=== PATIENT | male | born 1960 | race Caucasian/White ===

== ENCOUNTER 2016-09-30 10:35 | Day surgery (SDC) | payer OTHER ==
[2016-09-29 13:12] LABS: Basophils # (auto) 0 uL; Basophils % (auto) 0.3 % (0.0-2.0); Eosinophils # (auto) 0.1 uL; Eosinophils % (auto) 1.7 % (0.0-7.0); Hematocrit 44.7 % (41.0-53.0); Hemoglobin 14.7 g/dL (13.5-17.5); Lymphocytes # (auto) 1.3 uL; Lymphocytes % (auto) 25.6 % (10.0-50.0); Mean Corpuscular Hemoglobin 31.6 pg (28.0-32.0); Mean Corpuscular Volume 95.6 fL (80.0-100.0); Mean Platelet Volume 8.7 fL (7.4-10.4); Monocytes # (auto) 0.4 uL; Monocytes % (auto) 8.4 % (0.0-12.0); Neutrophils # (auto) 3.2 uL; Platelet Count (auto) 158 10^3/uL (140-450); Red Cell Distribution Width 13.5 % (11.6-16.0)
[2016-09-29 13:25] LABS: INR 1.11 (0.9-1.15); Prothrombin Time 11.4 sec (9.37-12.3)
[2016-09-29 13:29] LABS: Urine Bilirubin Negative (Negative); Urine Blood TRACE /uL (Negative); Urine Color Colorless (Yellow); Urine Ketone Negative (Negative); Urine Mucus FEW (None Seen); Urine Nitrite Negative (Negative); Urine RBC <1 /hpf (0 - 3); Urine Squamous Epithelial Cell FEW /hpf (<5); Urine Urobilinogen Normal (Negative)
[2016-09-29 13:30] LABS: Urine Glucose 1+ mg/dL (Normal)
[2016-09-29 13:34] LABS: Albumin 3.7 g/dL (3.4-5.0); BUN/Creatinine Ratio 15.2; Bilirubin, Total 0.5 mg/dL (0.2-1.0); Potassium 4.3 mmol/L (3.5-5.1); Total Protein 7.3 g/dL (6.4-8.2)
[~2016-09-30] VITALS: Ht 175.3 cm; Wt 102.1 kg
[~2016-09-30 10:35] MED LIST: BUPRTAB PO; LEV100T PO; NOR5T PO; OLME20TA19 PO
[2016-09-30] MEDS ORDERED: CLINDAMYCIN 600MG IV 50 ML IV ONE (16:20)
[2016-09-30] MEDS ORDERED: fentaNYL CITRATE 100 MCG/2 ML VL ONE (16:25)
[2016-09-30] MEDS ORDERED: KETOROLAC TROMETH 60MG/2ML VIAL IM ONE (16:26)
[2016-09-30] MEDS ORDERED: MIDAZOLAM HCL 1MG/1ML-2 ML VIAL ONE (16:26)
[2016-09-30] MEDS ORDERED: PROPOFOL 10 MG/ML 20 ML IV ONE (16:26)
[2016-09-30] MEDS ORDERED: DEXAMETHASONE SOD PHOS 10MG/1ML VIAL INJ ONE (16:26)
[2016-09-30] MEDS ORDERED: HYDROmorphone HCL 2 MG/ML VL IV PRN (17:15)
[2016-09-30] MEDS ORDERED: ONDANSETRON HCL 4 MG/2 ML VIAL IV ONE (17:15)
[2016-09-30 17:47] VITALS: BP 130/80
== END 2016-09-30 17:47 | disposition home or self-care (01) ==
LOC: SUR 10:35
PROVIDERS: ATTEND Podiatrist Foot & Ankle Surgery
DX: T84.84XA Pain due to internal orthopedic prosthetic devices, implants and grafts, initial encounter (principal); E66.9 Obesity, unspecified; E11.9 Type 2 diabetes mellitus without complications
CPT/HCPCS: 20680; 36415; 80053; 81001; 85025; 85610; 85730; J1100; J1885; J2250; J2704; J3010; J3490; Q4139

== ENCOUNTER → 2017-08-04 | Outpatient (CLI) | payer BC, OTHER ==
[~2017-08-04] MED LIST changes: +HYDR-4683 PO; +KETOROLAC TROMETH 60MG/2ML VIAL IM ONE; -NOR5T PO; +SODIUM CHLORIDE 0.9% 1,000 ML IV SCH; +cloNIDine HCL 0.1 MG TAB ONE; +cloNIDine HCL 0.1 MG TAB PO ONE; +clonazePAM 0.5 MG TAB PO ONE
[2017-08-04 15:00] VITALS: BP 119/69
[2017-08-04 15:57] VITALS: BP 119/69
[2017-08-04 16:17] LABS: Basophils # (auto) 0 uL; Basophils % (auto) 0.2 % (0.0-2.0); Eosinophils # (auto) 0 uL; Eosinophils % (auto) 0.5 % (0.0-7.0); Hematocrit 45.9 % (41.0-53.0); Lymphocytes # (auto) 1.1 uL; Lymphocytes % (auto) 11.9 % (10.0-50.0); Mean Corpuscular Volume 97.2 fL (80.0-100.0); Mean Platelet Volume 8.8 fL (6.9-10.8); Monocytes # (auto) 0.7 uL; Monocytes % (auto) 7.6 % (0.0-12.0); Neutrophils % (auto) 79.8 % (37.0-80.0); Nucleated Red Blood Cells % 0.4 %; Platelet Count (auto) 125 10^3/uL (140-450); Red Cell Distribution Width 13.1 % (11.8-14.3); White Blood Cell 8.8 10^3/uL (4.4-10.8)
[2017-08-04 16:24] LABS: BUN/Creatinine Ratio 19.2; Magnesium 2.5 mg/dL (1.6-2.6); Potassium 3.8 mmol/L (3.5-5.1)
== END | disposition home or self-care (01) ==
LOC: CHF HDHVI 13:04
PROVIDERS: ATTEND Internal Medicine Cardiovascular Disease
DX: I10 Essential (primary) hypertension (principal); E11.9 Type 2 diabetes mellitus without complications; E83.42 Hypomagnesemia; D64.9 Anemia, unspecified; E55.9 Vitamin D deficiency, unspecified
CPT/HCPCS: 36415; 80048; 82306; 82962; 83036; 83735; 85025; 96360; 96372; G0463; J1885

== ENCOUNTER 2017-08-05 21:35 | Inpatient (IN) | payer BC ==
[~2017-08-05] VITALS: Ht 175.3 cm; Wt 101.2 kg
[~2017-08-05 21:35] MED LIST changes: -KETOROLAC TROMETH 60MG/2ML VIAL IM ONE; -SODIUM CHLORIDE 0.9% 1,000 ML IV SCH; -cloNIDine HCL 0.1 MG TAB ONE; -cloNIDine HCL 0.1 MG TAB PO ONE; -clonazePAM 0.5 MG TAB PO ONE
[2017-08-05 22:12] LABS: Albumin 3.7 g/dL (3.4-5.0); Anion Gap 8 (5-15); Aspartate Aminotransferase 33 U/L (15-37); Blood Urea Nitrogen 24 mg/dL (7-18); Calcium 9.1 mg/dL (8.5-10.1); Carbon Dioxide 27 mmol/L (21-32); Chloride 101 mmol/L (98-107); GFR African American 89 mL/min; GFR Non-African American 74 mL/min; Glucose 142 mg/dL (74-106); Magnesium 2.3 mg/dL (1.6-2.6); Potassium 3.8 mmol/L (3.5-5.1); Sodium 136 mmol/L (136-145)
[2017-08-05 22:16] LABS: Alkaline Phosphatase 90 U/L (45-117); Bilirubin, Total 0.5 mg/dL (0.2-1.0); Total Protein 8.1 g/dL (6.4-8.2)
[2017-08-05 22:46] LABS: Basophils # (auto) 0 uL; Basophils % (auto) 0.3 % (0.0-2.0); Eosinophils # (auto) 0.1 uL; Eosinophils % (auto) 1.1 % (0.0-7.0); Lymphocytes # (auto) 1.5 uL; Monocytes # (auto) 0.7 uL; Neutrophils # (auto) 5.8 uL
[2017-08-05 22:48] LABS: Hemoglobin 15.8 g/dL (13.5-17.5); Lymphocytes % (auto) 19.1 % (10.0-50.0); Mean Corpuscular Hemoglobin 33.5 pg (28.0-32.0); Mean Corpuscular Hgb Conc. 34.5 g/dL (32.0-36.0); Mean Corpuscular Volume 97.1 fL (80.0-100.0); Mean Platelet Volume 8.6 fL (6.9-10.8); Monocytes % (auto) 8.2 % (0.0-12.0); Neutrophils % (auto) 71.3 % (37.0-80.0); Platelet Count (auto) 128 10^3/uL (140-450); Red Cell Distribution Width 12.9 % (11.8-14.3); White Blood Cell 8.1 10^3/uL (4.4-10.8)
[2017-08-06] MEDS ORDERED: LORazepam 0.5 MG TAB PO ONE (01:30)
[2017-08-06] MEDS ORDERED: HYDROcodone-ACET 10/325MG TAB PO ONE ×2 (01:30→10:00)
[2017-08-06] MEDS ORDERED: ASPirin 81 mg TAB PO ONE (01:30)
[2017-08-06 02:20] LABS: INR 0.98 (0.9-1.15); Partial Thromboplastin Time 27.5 sec (22.64-33.71); Prothrombin Time 10.7 sec (9.37-12.3)
[2017-08-06 02:33] LABS: B-Type Natriuretic Peptide 9.3 pg/mL (0-100); Temperature: 22.4 C (20.0-25.0)
[2017-08-06] MEDS ORDERED: LORazepam 0.5 MG TAB PO PRN (09:45)
[2017-08-06] MEDS ORDERED: MORPHINE SULF INJ 2 MG/ML SYRINGE 1ML IV PRN (09:45)
[2017-08-06] MEDS ORDERED: ACETAMINOPHEN 500 MG TAB PO PRN (09:45)
[2017-08-06] MEDS ORDERED: NITROGLYCERIN 0.4 MG SL TAB SL PRN (09:45)
[2017-08-06] MEDS ORDERED: TEMAZEPAM 15 MG CAP PO PRN (09:45)
[2017-08-06] MEDS ORDERED: LACTULOSE 20Gm/30ML SOLN PO PRN (09:45)
[2017-08-06] MEDS ORDERED: HYDROmorphone HCL 2 MG/ML VL IV PRN (09:45)
[2017-08-06] MEDS ORDERED: HYDROcodone-ACET 5/325MG TAB PO PRN (09:45)
[2017-08-06] MEDS ORDERED: PROMETHAZINE HCL 25 MG/ML 1ML IV PRN (09:45)
[2017-08-06] MEDS: METOPROLOL TARTRATE 25 MG TAB PO SCH ×2 (10:02→22:00)
[2017-08-06] MEDS: SODIUM CHLORIDE 0.9% 1,000 ML IV SCH (10:03)
[2017-08-06] MEDS: NITROGLYCERIN 0.2MG/HR TOPICAL PATCH TD SCH (10:03)
[2017-08-06] MEDS: ENOXAPARIN SOD 40 MG/0.4 ML SYRINGE SC SCH (10:03)
[2017-08-06] MEDS: HYDROcodone-ACET 10/325MG TAB PO SCH ×2 (13:45→20:53)
[2017-08-06 14:32] VITALS: BP 119/83
[2017-08-06 17:00] VITALS: BP 114/72
[2017-08-06 20:00] VITALS: BP 116/83
[2017-08-06 22:00] VITALS: BP 116/83
[2017-08-06] MEDS ORDERED: ATORVASTATIN 20 MG TAB PO SCH (22:00)
[2017-08-07 05:00] VITALS: BP 146/83
[2017-08-07] MEDS: HYDROcodone-ACET 10/325MG TAB PO SCH (05:47)
[2017-08-07] MEDS: SODIUM CHLORIDE 0.9% 1,000 ML IV SCH ×2 (05:47→12:15)
[2017-08-07 06:55] LABS: Cholesterol 180 mg/dL (< 200); HDL Cholesterol 39 mg/dL (40-59); LDL Cholesterol 134 mg/dL (< 100); Triglycerides 134 mg/dL (< 150)
[2017-08-07 08:00] VITALS: BP 122/79
[2017-08-07 09:00] VITALS: BP 122/79
[2017-08-07] MEDS: METOPROLOL TARTRATE 25 MG TAB PO SCH (09:38)
[2017-08-07] MEDS: ENOXAPARIN SOD 40 MG/0.4 ML SYRINGE SC SCH (09:39)
[2017-08-07] MEDS: NITROGLYCERIN 0.2MG/HR TOPICAL PATCH TD SCH (09:40)
[2017-08-07] MEDS ORDERED: ASPirin 81 mg TAB PO SCH (10:00)
[2017-08-07 10:57] VITALS: BP 122/68
[2017-08-07 11:07] VITALS: BP 122/68
== END 2017-08-07 13:29 | disposition home or self-care (01) | DRG 313 ==
LOC: ER 21:35 → TELE 21:36 → TELE-WESTW 08-06 11:54 → TELE-EAST 08-06 14:00
PROVIDERS: ADMIT Internal Medicine; ATTEND Internal Medicine
DX: R07.89 Other chest pain (principal); I20.9 Angina pectoris, unspecified; F41.9 Anxiety disorder, unspecified; M54.5 Low back pain; E03.9 Hypothyroidism, unspecified; E66.9 Obesity, unspecified; G89.29 Other chronic pain; I10 Essential (primary) hypertension; Z88.0 Allergy status to penicillin; Z68.32 Body mass index [BMI] 32.0-32.9, adult
CPT/HCPCS: 36415; 71010; 80053; 80061; 80307; 82550; 83735; 83880; 84443; 84484; 85025; 85379; 85610; 85652; 85730; 86141; 93005; 94761

== ENCOUNTER 2017-08-24 10:21 | Day surgery (SDC) | payer BC ==
[~2017-08-24] VITALS: Ht 177.8 cm; Wt 97.5 kg
[2017-08-24 11:31] LABS: Basophils # (auto) 0 uL; Basophils % (auto) 0.4 % (0.0-2.0); Eosinophils # (auto) 0.1 uL; Eosinophils % (auto) 0.8 % (0.0-7.0); Hematocrit 44.7 % (41.0-53.0); Hemoglobin 15.4 g/dL (13.5-17.5); Lymphocytes # (auto) 1.5 uL; Lymphocytes % (auto) 22.5 % (10.0-50.0); Mean Corpuscular Hemoglobin 33.1 pg (28.0-32.0); Mean Corpuscular Hgb Conc. 34.4 g/dL (32.0-36.0); Mean Corpuscular Volume 96.4 fL (80.0-100.0); Mean Platelet Volume 8.3 fL (6.9-10.8); Monocytes # (auto) 0.5 uL; Monocytes % (auto) 7.5 % (0.0-12.0); Neutrophils # (auto) 4.6 uL; Neutrophils % (auto) 68.8 % (37.0-80.0); Nucleated Red Blood Cells % 0.1 %; Platelet Count (auto) 145 10^3/uL (140-450); White Blood Cell 6.6 10^3/uL (4.4-10.8)
[2017-08-24 11:38] LABS: BUN/Creatinine Ratio 20.2; Calcium 8.9 mg/dL (8.5-10.1); Potassium 4.2 mmol/L (3.5-5.1)
[2017-08-24 11:46] LABS: INR 1.09 (0.9-1.15); Prothrombin Time 11.9 sec (9.37-12.3)
[2017-08-24] MEDS ORDERED: ASPI81TA27 PO (11:52)
[2017-08-24] MEDS ORDERED: LIDOCAINE 2%HCL (LOCAL ANESTH.) INJ 20ML MDV ONE (12:56)
[2017-08-24] MEDS ORDERED: IOHEXOL 350 MG/ML 100ML IJ ONE (12:56)
[2017-08-24] MEDS ORDERED: ANGIOMAX 250 MG VIAL IV ONE (13:05)
[2017-08-24] MEDS ORDERED: fentaNYL CITRATE 100 MCG/2 ML VL ONE (13:05)
[2017-08-24] MEDS ORDERED: SODIUM CHL 0.9% 50 ML ONE (13:06)
[2017-08-24] MEDS ORDERED: MIDAZOLAM HCL 1MG/1ML-2 ML VIAL ONE (13:06)
== END 2017-08-24 16:00 | disposition home or self-care (01) ==
LOC: CATH 10:21
PROVIDERS: ATTEND Internal Medicine Cardiovascular Disease
DX: R94.39 Abnormal result of other cardiovascular function study (principal); R07.9 Chest pain, unspecified; R00.1 Bradycardia, unspecified; Z88.0 Allergy status to penicillin; I10 Essential (primary) hypertension; E78.5 Hyperlipidemia, unspecified; E66.9 Obesity, unspecified; F41.9 Anxiety disorder, unspecified; E03.9 Hypothyroidism, unspecified
CPT/HCPCS: 36415; 80048; 85025; 85610; 93458; C1760; C1894; J1644; J2250; J3010; J7030; Q9967; 99152

== ENCOUNTER → 2018-01-18 | Outpatient (CLI) | payer BC ==
[~2018-01-18] MED LIST changes: +ASPI81TA27 PO
[2018-01-18 14:00] VITALS: BP 142/84
[2018-01-18 14:35] VITALS: BP 140/80
== END | disposition home or self-care (01) ==
LOC: CHF HDHVI 14:09
PROVIDERS: ATTEND Internal Medicine Cardiovascular Disease
DX: L02.818 Cutaneous abscess of other sites (principal); I10 Essential (primary) hypertension; E11.9 Type 2 diabetes mellitus without complications; E78.5 Hyperlipidemia, unspecified; E03.9 Hypothyroidism, unspecified
CPT/HCPCS: G0463

== ENCOUNTER → 2018-10-10 | Outpatient (CLI) | payer BC | END | disposition home or self-care (01) | LOC: Rad HDHVI 14:04 | PROVIDERS: ATTEND Internal Medicine Cardiovascular Disease | DX: I70.0 Atherosclerosis of aorta (principal) | CPT/HCPCS: 71046 ==

== ENCOUNTER → 2023-06-18 | Outpatient (CLI) | payer MEDICARE, BC ==
[~2023-06-18] MED LIST changes: +ASPI-543 PO; -ASPI81TA27 PO; -HYDR-4683 PO; +HYDR-4833 PO; -OLME20TA19 PO; +OLME20TA53 PO
[2023-06-18 13:45] VITALS: BP 205/102; PULSE 65; RESP 18; O2SAT 98
[2023-06-18 14:04] VITALS: BP 188/94; PULSE 63; RESP 18; O2SAT 98
== END | disposition home or self-care (01) ==
LOC: Rad HDHVI 13:06
PROVIDERS: ATTEND Internal Medicine Cardiovascular Disease
DX: I10 Essential (primary) hypertension (principal); E78.5 Hyperlipidemia, unspecified
CPT/HCPCS: 93306; G0463

== ENCOUNTER → 2023-07-19 | Outpatient (CLI) | payer MEDICARE, BC ==
[~2023-07-19] VITALS: Ht 175.3 cm; Wt 83.9 kg
[~2023-07-19] MED LIST changes: +ADENOSINE 70 MG in GIVE UN-DILUTED 0 ML IV ONE; +ADENOSINE 90 MG/30 ML INJ IV ONE
== END | disposition home or self-care (01) ==
LOC: Rad HDHVI 13:06
PROVIDERS: ATTEND Internal Medicine Cardiovascular Disease
DX: Z01.810 Encounter for preprocedural cardiovascular examination (principal); I11.0 Hypertensive heart disease with heart failure; I50.33 Acute on chronic diastolic (congestive) heart failure; R07.9 Chest pain, unspecified; E78.00 Pure hypercholesterolemia, unspecified; Z82.49 Family history of ischemic heart disease and other diseases of the circulatory system
CPT/HCPCS: 78452; 93005; 96374; 96375; A9500; J0153

== ENCOUNTER → 2025-01-19 | Outpatient (CLI) | payer MEDICARE, OTHER ==
[~2025-01-19] MED LIST changes: -ADENOSINE 70 MG in GIVE UN-DILUTED 0 ML IV ONE; -ADENOSINE 90 MG/30 ML INJ IV ONE; -LEV100T PO; +LEVO-849 PO
--- NOTE | 2025-01-19 13:31 | DVH ---
EXAM: CT LS SPINE WO CONTRAST HISTORY: LBP COMPARISON: None CTDIvol 33.9 mGy, DLP 950.14 mGy*cm. TECHNIQUE: Multiple axial CT images of the spine were obtained using bone algorithm. Axial and albrecht l reformatting was done. Bone and soft tissue windows were reviewed. FINDINGS: 5 mei-bwi-tthyqry lumbar-type vertebrae. Straightening of the lumbar lordosis. Chronic appearing ant erior wedge deformity of T12 and L1 with about 30% loss of anterior vertebral body height of T12 and 20% loss of vertebral body height of L1. Diffuse demineralization. Grade 1 retrolisthesis of L1 on L2 and L2 on L3. anterolisthesis Grade 2 anterolisthesis of L5 on S1 with bilateral L5 pars defect. Va cuum disc phenomenon at L3-L4 and L5-S1. T12-L1: No significant spinal canal or neural foramina stenosis. L1-L2: Minimal posterior disc osteophyte complex without significant spinal canal or neural foramina stenosis. L2-L3: Mild posterior disc osteophyte complex without significant spinal canal stenosis. Moderate rig ht with mild left-sided neural foramina stenosis. L3-L4: Posterior disc bulge with posterior disc calcification. Ligamentum flavum hypertrophy with krystyna rekha epidural lipomatosis causing severe bilateral lateral recess narrowing without significant spinal canal stenosis. Moderate left with severe right-sided neural foramina stenosis. L4-L5: Mild posterior disc bulge with posterior disc calcification without significant spinal canal s tenosis. Mild right with [id number] left-sided neural foramina stenosis. L5-S1: Posterior disc bulge without significant spinal canal stenosis. Severe bilateral neural forami na stenosis. Paraspinal muscles unremarkable. 2.4 x 2.1 cm structure abutting the inferior left adrenal gland. IMPRESSION: Multilevel moderate to severe degenerative changes of the lumbar spine as detailed above. Grade 2 ant erolisthesis of L5 on S1 with bilateral L5 pars defect. MRI should be considered for further evaluation. Moderate right-sided neural foramina stenosis at L2-L3 with moderate left and severe right-sided neur al foramina stenosis at L3-L4 and severe bilateral neural foramina stenosis at L5-S1. Severe bilateral lateral recess narrowing at L3-L4. 2.4 x 2.1 cm structure abutting the inferior left adrenal gland. CT abdomen and pelvis is recommended considered for further evaluation.
--- NOTE | 2025-01-19 13:58 | DVH ---
CLINICAL INDICATION: 64 years old, Male; RIGHT HIP PAIN. TECHNIQUE: Noncontrast CT of the right hip was performed. Sagittal and coronal reformatted images are provided. COMPARISON: None CT Dose: CTDI volume is 18.87 mGy. Dose-length product is 301.6 mGy*cm FINDINGS: No fracture or dislocation. Right hip joint space narrowing and osteophyte formation. The s oft tissues are unremarkable. IMPRESSION: 1. No acute fracture. 2. Degenerative changes in the right hip. All CT scans at this medical facility are performed using dose modulation techniques as appropriate t o a performed exam including the following: Automated exposure control was utilized; adjustment of th e MA and/or KV according to patient size; and use of iterative reconstruction technique.
== END | disposition home or self-care (01) ==
LOC: Rad HDHVI 11:34
PROVIDERS: ATTEND Internal Medicine Cardiovascular Disease
DX: M16.11 Unilateral primary osteoarthritis, right hip (principal); M25.751 Osteophyte, right hip; M51.370 Other intervertebral disc degeneration, lumbosacral region with discogenic back pain only; M47.816 Spondylosis without myelopathy or radiculopathy, lumbar region; M48.07 Spinal stenosis, lumbosacral region; M43.17 Spondylolisthesis, lumbosacral region; M40.46 Postural lordosis, lumbar region; M43.8X5 Other specified deforming dorsopathies, thoracolumbar region; M81.0 Age-related osteoporosis without current pathological fracture; M51.86 Other intervertebral disc disorders, lumbar region; M25.851 Other specified joint disorders, right hip; M25.78 Osteophyte, vertebrae; E88.2 Lipomatosis, not elsewhere classified; M25.551 Pain in right hip
CPT/HCPCS: 72131; 73700